=== PATIENT | female | born 1955 | race Caucasian/White ===

== ENCOUNTER 2018-04-01 05:57 | Day surgery (SDC) | payer OTHER ==
[~2018-04-01 05:57] MED LIST: CYCLOPENTOLATE 2% 2 ML OPH OPER; LACTATED RINGER'S 1,000 ML IV
[2018-04-01] MEDS: BROMFENAC SODIUM 1.7 ML OPH DROP OPER (06:37)
[2018-04-01] MEDS: MOXIFLOXACIN 0.5% 3 ML OPH OPER (06:37)
[2018-04-01] MEDS: TETRACAINE 0.5% 4 ML OPH OPER (06:38)
[2018-04-01] MEDS: PHENYLephrine 10% 5 ML OPH OPER (06:38)
[2018-04-01] MEDS: CYCLOPENTOLATE 2% 2 ML OPH OPER (06:39)
[2018-04-01] MEDS: TROPICAMIDE 1% 15 ML OPH OPER (06:39)
[2018-04-01] MEDS: LIDOCAINE 3.5% GEL TUBE OPER (06:40)
[2018-04-01] MEDS ORDERED: PROPOFOL 200 MG INJ (07:00)
[2018-04-01] MEDS ORDERED: LIDOCAINE 2% (SDV) 5 ML INJ (07:00)
[2018-04-01] MEDS ORDERED: LACTATED RINGER'S 1,000 ML IV (07:00)
[2018-04-01] MEDS ORDERED: CEFAZOLIN 1 GM INJ (07:00)
[2018-04-01] MEDS ORDERED: HYDROmorphONE 1 MG/5 ML IV SYRINGE IV (08:00)
[2018-04-01] MEDS ORDERED: MEPERIDINE 25 MG INJ IV (08:00)
[2018-04-01] MEDS ORDERED: DIPHENHYDRAMINE 50 MG INJ IV (08:00)
[2018-04-01] MEDS ORDERED: ALBUTEROL 0.083% (NEB) 2.5 MG/3 ML AMP HHN (08:00)
[2018-04-01] MEDS ORDERED: METOCLOPRAMIDE 10 MG INJ IV (08:00)
[2018-04-01] MEDS ORDERED: FENTAnyl 50 MCG/ML VIAL IV (08:00)
[2018-04-01] MEDS ORDERED: FENTAnyl 50 MCG/ML VIAL (08:06)
[2018-04-01] MEDS: TETRACAINE 0.5% 4 ML OPH (08:20)
[2018-04-01] MEDS: LIDOCAINE 2%/EPI MPF (SDV) 20 ML VIAL INJ (08:23)
[2018-04-01] MEDS: TRYPAN BLUE 0.5 ML SYG IO (08:23)
[2018-04-01] MEDS: EPINEPHrine 1 MG INJ (08:24)
[2018-04-01] MEDS: CARBACHOL 0.01% 1.5 ML OPH INJ RIGHT EYE (08:24)
[2018-04-01] MEDS ORDERED: TETRACAINE 0.5% 4 ML OPH (08:38)
[2018-04-01] MEDS ORDERED: CARBACHOL 0.01% 1.5 ML OPH INJ (08:53)
[2018-04-01] MEDS: FENTAnyl 50 MCG/ML VIAL IV (09:18)
[2018-04-01] MEDS: ONDANSETRON 4 MG INJ IV (09:18)
[2018-04-01] MEDS ORDERED: hydrALAzine 20 MG INJ (09:30)
[2018-04-01] MEDS: hydrALAzine 20 MG INJ IV (09:38)
[2018-04-01] MEDS: TOBRAMYCIN/DEXAMETH 3.5 GM OPH OINT (09:47)
[2018-04-01] MEDS: HYDROmorphONE 1 MG/5 ML IV SYRINGE IV (10:03)
== END 2018-04-01 10:18 | disposition home or self-care (01) ==
LOC: SDS 05:57
DX: H25.21 Age-related cataract, morgagnian type, right eye (principal); H40.20X0 Unspecified primary angle-closure glaucoma, stage unspecified; I10 Essential (primary) hypertension; E78.5 Hyperlipidemia, unspecified; E03.9 Hypothyroidism, unspecified
CPT/HCPCS: 66984